=== PATIENT | male | born 1945 | race Hispanic/Latino ===

== ENCOUNTER 2017-10-26 14:34 | Inpatient (IN) | payer OTHER ==
[2017-10-26 16:01] LABS: #Eosinphils 0.5 thou/uL (0.0-0.7); #Lymphocytes 1.8 thou/uL (1.20-3.40); #Monocytes 0.9 thou/uL (0.11-0.59); #Neutrophils 5.7 thou/uL (1.40-6.50); %Basophils 0.4 % (0.0-1.0); %Eosinophils 5.2 % (0.0-10.0); %Lymphocytes 20.2 % (21.0-51.0); %Monocytes 9.6 % (0.0-10.0); %Neutrophils 64.6 % (42.0-75.0); Hemoglobin 10.6 g/dL (14.0-18.0); Mean Corpuscular HGB CONC 33.4 g/dL (32.0-36.0); Mean Corpuscular Hemoglobin 29.6 pg (27.0-31.0); Mean Corpuscular Volume 88.6 fl (80.0-94.0); Mean Platelet Volume 7.3 fL (7.4-10.4); Platelet Count 324 thou/uL (130-400); RBC Distribution Width 13.1 % (11.5-14.5); Red Blood Cell (RBC) Count 3.56 mill/uL (4.70-6.10); White Blood Cell (WBC) Count 8.9 thou/uL (4.8-10.8)
--- NOTE | 2017-10-26 16:17 | RAD ---
RADIOGRAPH CHEST 2 VIEWS: Date: 10/26/17 Time: 3:14 p.m. HISTORY: 72-year-old male with dyspnea and chest pain. COMPARISON: None. FINDINGS: There is mild blunting of the bilateral posterior and lateral costophrenic angles. There is borderlin e cardiomegaly. There is mild pulmonary vascular prominence. No jaguar pulmonary edema. No consolidati on or pneumothorax. IMPRESSION: 1. Evidence for small bilateral pleural effusions (versus pleural thickening). 2. No evidence of pneumonia. JN [] POS: JUAN
[2017-10-26 16:23] LABS: ALT (SGPT) 14 U/L (8-55); AST (SGOT) 22 U/L (5-34); Albumin 3.5 g/dL (3.4-4.8); Alkaline Phosphatase 176 U/L (40-150); Anion Gap 16 mmol/L (10-20); BUN (Urea Nitrogen) 38 mg/dL (8.4-25.7); Bilirubin, Total 0.3 mg/dL (0.2-1.2); CK (CPK) 542 U/L (30-200); Calc. Creatinine Clearance 0 mL/min (70-130); Calcium 6.3 mg/dL (7.8-10.44); Carbon Dioxide 20 mmol/L (23-31); Chloride 110 mmol/L (98-107); Estimated GFR-MDRD 21; Globulin 4.8 g/dL (2.4-3.5); Glucose 94 mg/dL (83-110); Potassium 4.3 mmol/L (3.5-5.1); Protein, Total 8.3 g/dL (5.8-8.1); Sodium 142 mmol/L (136-145)
[2017-10-26 16:27] LABS: CKMB 5.5 ng/mL (0-6.6)
[2017-10-26 17:00] LABS: INR-International Normal Ratio 1.1; PTT 34.5 SEC (22.9-36.1); Prothrombin Time 14.5 SEC (12.0-14.7)
[2017-10-26 17:02] LABS: D-Dimer Test 3.41 *mcg/mL (0.27-0.43)
[2017-10-26] MEDS ORDERED: Furosemide 40 MG/4 ML VIAL ONE (17:07)
[2017-10-26] MEDS ORDERED: Enoxaparin Sodium 80 MG/0.8 ML SYRINGE ONE (17:07)
[2017-10-26 21:57] VITALS: BMI 27.3
[2017-10-26] MEDS ORDERED: Nitroglycerin 0.4 MG TAB (25 Tab Bottle) SL PRN (22:31)
[2017-10-26] MEDS ORDERED: Ondansetron ODT 4 MG TAB PO PRN (22:31)
[2017-10-26] MEDS ORDERED: Ondansetron HCl/PF 4 MG/2 ML Vial IVP PRN (22:31)
[2017-10-26] MEDS ORDERED: hydrALAZINE 20 MG/ML VIAL SLOW IVP PRN (22:31)
[2017-10-26] MEDS ORDERED: cloNIDine 0.1 MG TAB PO PRN (22:31)
[2017-10-26] MEDS ORDERED: Dextrose 50% Abboject 50 ML SYRINGE SLOW IVP PRN (22:31)
[2017-10-26] MEDS ORDERED: Dextrose 5% in Water 1,000 ML IV PRN (22:31)
[2017-10-26] MEDS ORDERED: Acetaminophen 500 MG TAB PO PRN (22:31)
[2017-10-26] MEDS ORDERED: HumaLOG 300 UNITS/3 ML VIAL SC PRN ×2 (22:31)
[2017-10-26] MEDS ORDERED: Furosemide 40 MG/4 ML VIAL SLOW IVP SCH (23:00)
[2017-10-26] MEDS: Calcitriol 0.25 MCG CAP PO SCH (23:32)
[2017-10-27] MEDS: Diabetic Tussin 200 MG/10 ML UDCUP PO PRN ×3 (00:04→23:44)
[2017-10-27 01:05] LABS: Troponin I 2.697 ng/mL (< 0.028)
--- NOTE | 2017-10-27 02:01 | HP ---
DATE OF ADMISSION: 10/26/2017 PRIMARY CARE PROVIDER: [place] [facility]. HISTORY OF PRESENT ILLNESS: This is a 72-year-old male who presents to [facility] complaining of increased cough, shortness of breath over 1 week time period. The patie nt states the symptoms began somewhat insidiously worse when lying flat, at which point, the patient thought he had cold symptoms. The patient admitted in the emergency room with some associated nausea and chest pain, but none currently. The patient also has noticed increasing swelling of his lower e xtremities, which he has not noticed previously. The patient denies any specific change to his chron ic medication regimen, but does state a significant history of chronic kidney disease as well as diab etes mellitus type 2, insulin requiring with diabetic neuropathy. The patient denies any known coron kylie artery disease and denies any previous left heart catheterizations or cardiac interventions. The patient denies any associated left arm, jaw or back pain. The patient does states that he takes chr onic aspirin and Plavix therapy as well as Lasix. In the emergency room, the patient underwent gener al evaluation including chest imaging showing bilateral pleural effusions without evidence for an acu te infiltrate. EKG showed no acute ST-T wave changes; however, the patient was noted with elevated t roponin I of 1.46 and a BNP of 765. The patient received Lasix 40 mg IV push x1 dose in addition to Lovenox 1 mg/kg subcutaneously x1 dose, aspirin 324 mg and sodium chloride 500 mL. The patient was r eferred to the Hospitalist Service for admission. PAST MEDICAL HISTORY: 1. Chronic kidney disease, stage 4. 2. Diabetes mellitus, type 2, insulin requiring with diabetic neuropathy. 3. Hypertension. 4. Chronic normocytic anemia secondary to chronic kidney disease. 5. Hypothyroidism. 6. Peripheral vascular disease. 7. Degenerative joint disease. 8. Hyperlipidemia. PAST SURGICAL HISTORY: Reviewed and negative. CURRENT MEDICATIONS: 1. Amlodipine 10 mg 1 tab p.o. daily. 2. Amoxicillin 250 mg p.o. b.i.d. 3. Enteric-coated aspirin 81 mg p.o. daily. 4. Lipitor 40 mg p.o. daily. 5. Calcitriol 0.25 mcg p.o. q.48 hours. 6. Calcium carbonate 500 mg p.o. b.i.d. 7. Plavix 75 mg 1 tab p.o. daily. 8. Ferrous sulfate 325 mg p.o. b.i.d. 9. Lasix 40 mg p.o. b.i.d. 10. Gemfibrozil 600 mg p.o. b.i.d. 11. Novolin N 22 units subcutaneously q.a.m. and 11 units subcutaneously at bedtime. 12. Novolin R sliding scale with meals. 13. Methylcellulose 500 mg p.o. b.i.d. 14. Metoprolol tartrate 100 mg p.o. b.i.d. 15. Omeprazole 20 mg p.o. daily. 16. Renvela 800 mg p.o. t.i.d. ALLERGIES: No known drug allergies. FAMILY HISTORY: Positive for hypertension and diabetes in multiple family members. SOCIAL HISTORY: Currently an inmate at the [place] [facility] Former tobacco use, smo marleen cigars. No alcohol or illicit drug use. REVIEW OF SYSTEMS: The following complete review of systems was negative, unless otherwise mentioned in the HPI or below: Constitutional: Weight loss or gain, ability to conduct usual activities. Sk in: Rash, itching. Eyes: Double vision, pain. ENT/Mouth: Nose bleeding, neck stiffness, pain, ten derness. Cardiovascular: Palpitations, dyspnea on exertion, orthopnea. Respiratory: Shortness of breath, wheezing, cough, hemoptysis, fever or night sweats. Gastrointestinal: Poor appetite, abdomi nal pain, heartburn, nausea, vomiting, constipation, or diarrhea. Genitourinary: Urgency, frequency , dysuria, nocturia. Musculoskeletal: Pain, swelling. Neurologic/Psychiatric: Anxiety, depression . Allergy/Immunologic: Skin rash, bleeding tendency. Otherwise negative except as stated per HPI. PHYSICAL EXAMINATION: VITAL SIGNS: On admission, blood pressure 156/85, pulse 79, respiratory rate 17, temperature 97.5 de grees Fahrenheit, O2 saturation 99% on room air. GENERAL APPEARANCE: This is a 72-year-old male, alert and oriented x3, pleasant, in no acut e distress. HEENT: Pupils are equal, round, and reactive to light and accommodation. Extraocular muscles are in tact. No scleral icterus, no conjunctival injection. Nares patent. OP is clear. NECK: Supple, no cervical adenopathy, no thyromegaly, no carotid bruits, no JVD appreciated. Cervic al spine with full active and passive range of motion. CHEST: Diminished breath sounds in the bases bilaterally with scattered bibasilar crackles. CARDIOVASCULAR: S1, S2 with distant heart sounds. ABDOMEN: Rounded, soft, nontender, nondistended. Bowel sounds are positive in all four quadrants. There is no hepatosplenomegaly, no abdominal bruits, no rebound or guarding appreciated. EXTREMITIES: Warm and dry with fair turgor. Pitting edema to the proximal shins bilaterally. Pulse s palpable distally at the dorsalis pedis, posterior tibial and popliteal arteries bilaterally. Capi llary refill less than 2 seconds. The patient in ankle and wrist shackles. NEUROLOGIC: Cranial nerves II-XII are grossly intact. No focal or lateralizing signs appreciated. PERTINENT LABORATORY AND X-RAY FINDINGS: Sodium 142, potassium 4.3, chloride 110, CO2 of 20, BUN 38, creatinine 2.97 with estimated GFR of 21, glucose 228, calcium 6.3, alkaline phosphatase 176, total CK of 542, troponin I 1.46. BNP 765, albumin 3.5. CBC showed a white blood cell count of 8.9, hemog lobin 10.6, hematocrit 31.6, platelet count 324 with normal differential. PT 14.5, INR 1.1, PTT 34.5 . D-dimer 3.41. Portable chest x-ray dated 10/26/2017 showed small bilateral pleural effusions. No evidence for an acute pneumonia. EKG dated 10/26/2017 by my interpretation shows a sinus mechanism with heart rates in the 80s. Normal R-wave progression noted in the precordial leads. Normal axis. No acute ST-T wave changes appreciated. ASSESSMENT AND PLAN: 1. Non-ST elevation myocardial infarction. The patient will be admitted to the intermediate care it. We will continue aspirin 325 mg daily with additional Plavix 75 mg p.o. daily. Consult Cardiolo gy Service for evaluation of likely left heart catheterization. Continue Lovenox 1 mg/kg subcutaneou sly q.12 hours. Check fasting lipid profile in the a.m. Resume metoprolol 100 mg p.o. b.i.d. 2. Acute congestive heart failure. We will obtain 2D transthoracic echocardiogram to define specifi c type of heart failure. Continue Lasix 40 mg IV q.12 hours. Monitor daily weight and I's and O's. 3. Chronic kidney disease, stage 4. Avoid nephrotoxic agents and limit contrast media exposure. Re peat creatinine in the a.m. 4. Hypertension. Resume home antihypertensive regimen and monitor clinical response. 5. Diabetes mellitus, type 2, insulin requiring. Resume outpatient insulin regimen with Novolin 22 units subcutaneously q.a.m. and 11 units subcutaneously at bedtime. Accu-Cheks a.c. and at bedtime. Insulin sliding scale for reflexive coverage. 6. Normocytic anemia. Chronic and secondary to chronic kidney disease. Repeat CBC in the a.m. No evidence to suggest acute blood loss. 7. Prophylaxis. Hold sequential compression devices due to lower extremity edema. Pepcid 20 mg p.o . b.i.d. 8. Code status is FULL. Surrogate medical decision maker is [place] [facility].
[2017-10-27 03:27] LABS: Band 1 % (5-11); Eosinophils 7 % (0-10); Hemoglobin 10.2 g/dL (14.0-18.0); Lymphocytes 12 % (21-51); MDiff Complete? YES; Mean Corpuscular HGB CONC 33.7 g/dL (32.0-36.0); Mean Corpuscular Hemoglobin 29.1 pg (27.0-31.0); Mean Corpuscular Volume 86.2 fl (80.0-94.0); Mean Platelet Volume 6.1 fL (7.4-10.4); Monocytes 12 % (0-10); Neutrophil 68 % (42-75); Platelet Count 276 thou/uL (130-400); White Blood Cell (WBC) Count 7.8 thou/uL (4.8-10.8)
[2017-10-27 03:37] LABS: ALT (SGPT) 13 U/L (8-55); AST (SGOT) 18 U/L (5-34); Albumin 3.3 g/dL (3.4-4.8); Alkaline Phosphatase 147 U/L (40-150); Anion Gap 12 mmol/L (10-20); BUN (Urea Nitrogen) 37 mg/dL (8.4-25.7); Bilirubin, Total 0.5 mg/dL (0.2-1.2); CK (CPK) 466 U/L (30-200); Calc. Creatinine Clearance 25 mL/min (70-130); Calcium 6.2 mg/dL (7.8-10.44); Carbon Dioxide 26 mmol/L (23-31); Cardiac Risk 3.9 (Less than 4.5); Chloride 107 mmol/L (98-107); Cholesterol 139 mg/dl (< 200 Desired); Estimated GFR-MDRD 21; Globulin 4.3 g/dL (2.4-3.5); Glucose 109 mg/dL (83-110); HDL Cholesterol 36 mg/dL (>60 Neg Risk); LDL Cholesterol, Calculated 85 mg/dL; Potassium 3.9 mmol/L (3.5-5.1); Protein, Total 7.6 g/dL (5.8-8.1); Sodium 141 mmol/L (136-145); Triglycerides 90 mg/dL (Less than 150)
[2017-10-27 03:38] LABS: Troponin I 3.133 ng/mL (< 0.028)
[2017-10-27] MEDS: Furosemide 40 MG/4 ML VIAL SLOW IVP SCH ×2 (05:35→14:00)
[2017-10-27] MEDS: Metoprolol Tartrate 100 MG TAB PO SCH ×2 (08:10→21:18)
[2017-10-27] MEDS: Clopidogrel Bisulfate 75 MG TAB PO SCH (08:10)
[2017-10-27] MEDS: Calcium Carbonate 500 MG TAB PO SCH ×2 (08:10→21:18)
[2017-10-27] MEDS: Ferrous Sulfate 325 MG TAB PO SCH ×2 (08:10→16:10)
[2017-10-27] MEDS: Sevelamer Carbonate 800 MG TAB PO SCH ×3 (08:10→16:10)
[2017-10-27] MEDS: Gemfibrozil 600 MG TAB PO SCH ×2 (08:10→16:09)
[2017-10-27] MEDS: NPH, Human Insulin Isophane 300 UNIT/3 ML VIAL SC SCH ×2 (08:11→21:18)
[2017-10-27] MEDS: Amlodipine 10 MG TAB PO SCH (08:11)
[2017-10-27] MEDS ORDERED: Prevnar 13-Val Conj/PF 0.5 ML SYRINGE IM ONE (09:00)
[2017-10-27] MEDS ORDERED: Aspirin 325 MG TAB PO SCH (09:00)
[2017-10-27] MEDS ORDERED: Aspirin 81 mg Enteric Coated Tablet PO SCH (09:45)
[2017-10-27] MEDS: Famotidine 20 MG TAB PO SCH (10:09)
--- NOTE | 2017-10-27 14:31 | CON ---
DATE OF CONSULTATION: 10/27/2017 HISTORY OF PRESENT ILLNESS: The patient is an unfortunate 72-year-old gentleman who presented with coughing, dyspnea, was noted to have an elevated troponin level. The patient has no previous cardiac history. The patient has a history of diabetes mellitus and hypertension. The patient was noticed recently having increasing coughing and he started vomiting. He brought to the emergency room. Patient denies having any history of chest discomfort. He does report he recently noted having increasing dyspnea on exertion. PAST MEDICAL HISTORY: 1. Hypertension. 2. Diabetes mellitus. 3. Chronic renal insufficiency. PAST SURGICAL HISTORY: None. SOCIAL HISTORY: Nonsmoker. MEDICATIONS ON ADMISSION: Lopressor 100 mg p.o. b.i.d., Norvasc 10 daily, sevelamer 800 t.i.d., gemfibrozil 600 daily, Lasix 40 daily, Plavix 75 daily, Lipitor 40 at bedtime, aspirin 81 daily, amoxicillin 250 b.i.d. and insulin. FAMILY HISTORY: Positive family history of heart disease. ALLERGIES: No known drug allergies. REVIEW OF SYSTEMS: Ten-point system otherwise unremarkable, no history of easy bruising or bleeding, bright red blood per rectum. PHYSICAL EXAMINATION: GENERAL: Well-developed gentleman in no acute distress. VITAL SIGNS: Blood pressure 150/66. NECK: No jugular venous distention. LUNGS: Clear to auscultation. HEART: Regular rate and rhythm with a normal S1, S2, no murmurs. ABDOMEN: Distended. EXTREMITIES: Showed mild bilateral edema. VASCULAR: Radial pulses are 2+. LABORATORY RESULTS: Sodium 141, potassium 3.9, chloride 107, bicarbonate 26, BUN 37, creatinine is 2.98, glucose is 118, troponin is 3.1. His CPK was 466. IMPRESSION: 1. Dyspnea with evidence of congestive heart failure. 2. Elevated troponin level, possible silent non-Q-wave myocardial infarction. 3. Hypertension. 4. Diabetes mellitus. 5. Chronic renal insufficiency. The patient presents with a possible non-Q-wave myocardial infarction. We will check the patient's echocardiogram. With his significant renal insufficiency, we will proceed with stress testing to see if there is evidence of ischemia before considering an invasive evaluation. The patient is on otherwise appropriate medications. We will follow this patient with you through his hospitalization. MANJULA
[2017-10-27] MEDS: Enoxaparin Sodium 30 MG/0.3 ML SYRINGE SC SCH (16:10)
--- NOTE | 2017-10-27 16:22 | CON ---
DATE OF CONSULTATION: 10/27/2017 SERVICE: Pulmonary Medicine. REASON FOR CONSULTATION: IMCU patient. HISTORY OF PRESENT ILLNESS: The patient is a 72-year-old male with past medical history significant for chronic kidney disease stage 4 and diabetes. He is in his usual state of health when he had onset of cough. He is bringing up a little bit of white phlegm. He had increasing shortness of breath. This was worse whenever he lied down. He presented to the Emergency Department and was discovered to be in acute heart failure. His BNP was elevated. He got couple doses of Lasix. Overnight, he diuresed very nicely. This morning, his cough and shortness of breath have resolved. He denies any current fevers, chills, nausea or vomiting. There is no infectious prodrome. PAST MEDICAL HISTORY: 1. Type 2 diabetes mellitus. 2. Hypertension. 3. Dyslipidemia. 4. Hypothyroidism. 5. Chronic kidney disease stage 4. 6. Anemia secondary to chronic kidney disease. 7. Peripheral vascular disease. 8. Degenerative joint disease. PAST SURGICAL HISTORY: Negative. ALLERGIES: No known drug allergies. MEDICATIONS: List of his inpatient medications were reviewed, but no specific updates were made at this time. ALLERGIES: No known drug allergies. FAMILY HISTORY: Noncontributory. SOCIAL HISTORY: He is currently in custody at the [place] [facility]. At that location, he has exposure to tuberculosis. He does not use alcohol or cigarettes. He denies any exposures to chemicals, dust or asbestos. REVIEW OF SYSTEMS: General, head, ears, eyes, nose, throat, cardiovascular, respiratory, GI, , musculoskeletal, neurologic and skin is negative except as stated in HPI. PHYSICAL EXAMINATION: VITAL SIGNS: Afebrile, pulse 54, blood pressure 138/58, respirations 13, saturation 100% on room air. GENERAL: The patient awake, alert, no apparent distress. LUNGS: Decent air entry. There is no prolonged expiratory phase, wheezing or rhonchi. Dependent crackles are present. HEART: Normal rate, regular. ABDOMEN: Soft, nontender, and nondistended. Bowel sounds are positive. MUSCULOSKELETAL: No cyanosis or clubbing. There is 1-2+ pitting in the bilateral lower extremities. NEUROLOGIC: Grossly nonfocal. LABORATORY DATA: WBC 7.8, hemoglobin 10.2 and stable, platelets 276,000. INR 1.1. Creatinine 2.98 and roughly stable. Basic metabolic profile is otherwise unremarkable. BUN is 37. Liver function studies are negative. Troponin is going up to 3.1. ASSESSMENT: 1. Acute hypoxic respiratory failure, resolved. 2. Acute on chronic diastolic heart failure. 3. Non-ST elevation myocardial infarction. 4. Type 2 diabetes mellitus. PLAN: The patient has been diuresed to euvolemia. At this point, he is stable for transition out of the [facility] regular to the telemetry floor. Echocardiogram is currently pending. Pulmonary or Critical Care will continue to follow if the patient remains in this location. 70 minutes have been devoted to this patient in various activities. I personally reviewed all imaging studies and laboratory data noted within this document. For fifty percent of this time, I was interacting with the patient at the bedside or coordinating care with the care team. For the remainder of the time I was immediately available to the patient in the hospital unit. MANJULA
[2017-10-27] MEDS ORDERED: Enoxaparin Sodium 80 MG/0.8 ML SYRINGE SC SCH (17:00)
[2017-10-27] MEDS ORDERED: Atorvastatin Calcium 40 MG TAB PO SCH (21:00)
--- NOTE | 2017-10-27 22:17 | PDOC.PN ---
- Subjective Encounter Start Date: 10/27/17 Encounter Start Time: 15:00 Subjective: nsg notes rev, regan ovn, 2 guards at bedside, no c/o denies CP -: denies SOB - Objective Resuscitation Status: Resuscitation Status FULL:Full Resuscitation Vital Signs & Weight: Vital Signs (12 hours) Temp Pulse Resp BP Pulse Ox 10/27/17 20:00 98.7 F 57 L 20 126/51 L 98 10/27/17 15:07 98.4 F 54 L 138/58 L 93 L 10/27/17 11:30 98.4 F 52 L 23 H 133/59 L 100 Weight Weight 168 lb 4.8 oz I&O: 10/26/17 10/27/17 10/28/17 06:59 06:59 06:59 Intake Total 75 720 Output Total 1575 2600 Balance -1500 -1880 Result Diagrams: 10/28/17 05:07 10/29/17 03:49 Additional Labs: Accuchecks 10/27/17 10/27/17 10/27/17 20:20 16:31 10:28 POC Glucose 118 H 104 66 L 10/27/17 05:39 POC Glucose 118 H Phys Exam - Physical Examination Constitutional: NAD lying in hospital bed x4 handcuffs HEENT: moist MMs, sclera anicteric Respiratory: no wheezing, no rales, no rhonchi, clear to auscultation bilateral Cardiovascular: RRR, no significant murmur, no rub Gastrointestinal: soft, non-tender, positive bowel sounds Musculoskeletal: no edema, pulses present Psychiatric: normal affect, A&O x 3 Dx/Plan - Plan * 72M hx HTN DM who p/w SOB * * NSTEMI * apprec card c/s * plan for stress test today * serial troponin * med mgmt * VSS and hemodyn stable HTN, stable DM2 stable hx CKD stable diet: cardiac diabetic renal activity: bedrest dvt ppx Review of Systems - Medications/Allergies Allergies/Adverse Reactions: Allergies Allergy/AdvReac Type Severity Reaction Status Date / Time No Known Allergies Allergy Unverified 10/26/17 19:54 Medications: Current Medications Acetaminophen (Tylenol) 1,000 mg PO Q6H PRN PRN Reason: Headache/Fever or Mild Pain Amlodipine Besylate (Norvasc) 10 mg PO DAILY ARMANI Last Admin: 10/27/17 08:11 Dose: 10 mg Aspirin (Ecotrin) 81 mg PO DAILY [facility] Atorvastatin Calcium (Lipitor) 40 mg PO QPM [facility] Last Admin: 10/27/17 21:18 Dose: 40 mg Calcitriol (Rocaltrol) 0.25 mcg PO Q2DAYS [facility] Last Admin: 10/26/17 23:32 Dose: 0.25 mcg Calcium Carbonate (Oscal-500) 500 mg PO BID [facility] Last Admin: 10/27/17 21:18 Dose: 500 mg Clonidine (Catapres) 0.1 mg PO Q4H PRN PRN Reason: Systolic BP > 180 Clopidogrel Bisulfate (Plavix) 75 mg PO DAILY [facility] Last Admin: 10/27/17 08:10 Dose: 75 mg Dextrose/Water (Dextrose 50%) 25 gm SLOW IVP PRN PRN PRN Reason: Hypoglycemia Enoxaparin Sodium (Lovenox) 30 mg SC 1700 [facility] Last Admin: 10/27/17 16:10 Dose: 30 mg Famotidine (Pepcid) 20 mg PO Q24HR [facility] Last Admin: 10/27/17 10:09 Dose: 20 mg Ferrous Sulfate (Feosol) 325 mg PO BID-[facility] Last Admin: 10/27/17 16:10 Dose: 325 mg Furosemide (Lasix) 40 mg SLOW IVP 0600,1400 [facility] Last Admin: 10/27/17 14:00 Dose: 40 mg Gemfibrozil (Lopid) 600 mg PO BID-AC [facility] Last Admin: 10/27/17 16:09 Dose: 600 mg Glucagon (Glucagon) 1 mg IM PRN PRN PRN Reason: Hypoglycemia Guaifenesin (Robitussin Sf) 300 mg PO Q4H PRN PRN Reason: Cough Last Admin: 10/27/17 05:35 Dose: 300 mg Hydralazine HCl (Apresoline) 10 mg SLOW IVP Q4H PRN PRN Reason: Systolic BP > 180 Dextrose/Water (D5w) 1,000 mls @ 0 mls/hr IV .Q0M PRN; As Directed PRN Reason: Hypoglycemia Insulin Human Lispro (Humalog) 0 units SC .MODERATE SLIDING SC PRN PRN Reason: Moderate Correctional Scale Insulin Human Lispro (Humalog) 0 units SC .BEDTIME SLIDING SC PRN PRN Reason: Bedtime Correctional Scale Insulin Human NPH (Humulin N) 11 unit SC QPM [facility] Last Admin: 10/27/17 21:18 Dose: 11 unit Insulin Human NPH (Humulin N) 22 unit SC DAILY-[facility] Last Admin: 10/27/17 08:11 Dose: 22 unit Metoprolol Tartrate (Lopressor) 100 mg PO BID [facility] Last Admin: 10/27/17 21:18 Dose: 100 mg Nitroglycerin (Nitrostat) 0.4 mg SL Q5MIN PRN PRN Reason: Chest Pain Ondansetron HCl (Zofran Odt) 4 mg PO Q6H PRN PRN Reason: Nausea/Vomiting Ondansetron HCl (Zofran) 4 mg IVP Q6H PRN PRN Reason: Nausea/Vomiting Sevelamer Carbonate (Renvela) 800 mg PO TID-[facility] Last Admin: 10/27/17 16:10 Dose: 800 mg
[2017-10-28 05:31] LABS: #Basophils 0.1 thou/uL (0.0-0.2); #Eosinphils 0.3 thou/uL (0.0-0.7); #Lymphocytes 1.6 thou/uL (1.20-3.40); #Monocytes 0.7 thou/uL (0.11-0.59); #Neutrophils 6.6 thou/uL (1.40-6.50); %Basophils 0.6 % (0.0-1.0); %Eosinophils 3.5 % (0.0-10.0); %Lymphocytes 17.6 % (21.0-51.0); %Monocytes 7.9 % (0.0-10.0); %Neutrophils 70.4 % (42.0-75.0); Hemoglobin 10.5 g/dL (14.0-18.0); Mean Corpuscular HGB CONC 33.7 g/dL (32.0-36.0); Mean Corpuscular Hemoglobin 29.6 pg (27.0-31.0); Mean Corpuscular Volume 87.9 fl (80.0-94.0); Mean Platelet Volume 6.6 fL (7.4-10.4); Platelet Count 324 thou/uL (130-400); RBC Distribution Width 12.8 % (11.5-14.5); Red Blood Cell (RBC) Count 3.54 mill/uL (4.70-6.10); White Blood Cell (WBC) Count 9.3 thou/uL (4.8-10.8)
[2017-10-28] MEDS: Diabetic Tussin 200 MG/10 ML UDCUP PO PRN (05:45)
[2017-10-28] MEDS: Furosemide 40 MG/4 ML VIAL SLOW IVP SCH ×2 (05:45→14:03)
[2017-10-28 05:52] LABS: Anion Gap 14 mmol/L (10-20); BUN (Urea Nitrogen) 41 mg/dL (8.4-25.7); Calc. Creatinine Clearance 21 mL/min (70-130); Calcium 6.5 mg/dL (7.8-10.44); Carbon Dioxide 26 mmol/L (23-31); Chloride 101 mmol/L (98-107); Estimated GFR-MDRD 18; Glucose 81 mg/dL (83-110); Potassium 3.7 mmol/L (3.5-5.1); Sodium 137 mmol/L (136-145)
[2017-10-28] MEDS ORDERED: Regadenoson 0.4 MG/5 ML SYRINGE ONE (10:33)
[2017-10-28] MEDS: Gemfibrozil 600 MG TAB PO SCH ×2 (13:26→16:49)
[2017-10-28] MEDS: Ferrous Sulfate 325 MG TAB PO SCH ×2 (13:27→16:49)
[2017-10-28] MEDS: Sevelamer Carbonate 800 MG TAB PO SCH ×3 (13:27→16:49)
[2017-10-28] MEDS: NPH, Human Insulin Isophane 300 UNIT/3 ML VIAL SC SCH ×2 (13:27→21:21)
[2017-10-28] MEDS: Aspirin 81 mg Enteric Coated Tablet PO SCH (13:28)
[2017-10-28] MEDS: Amlodipine 10 MG TAB PO SCH (13:28)
[2017-10-28] MEDS: Clopidogrel Bisulfate 75 MG TAB PO SCH (13:29)
[2017-10-28] MEDS: Calcium Carbonate 500 MG TAB PO SCH ×2 (13:29→21:08)
[2017-10-28] MEDS: Famotidine 20 MG TAB PO SCH (13:29)
[2017-10-28] MEDS: Metoprolol Tartrate 100 MG TAB PO SCH ×2 (13:29→21:08)
--- NOTE | 2017-10-28 13:35 | NM ---
NUCLEAR MEDICINE CARDIAC MYOCARDIAL PERFUSION SPECT EJECTION FRACTION STUDY WALL MOTION CINE: DATE: 10/28/17. HISTORY: A 72-year-old male with a history of congestive heart failure, peripheral vascular disease, hypertens ion, diabetes mellitus, and dyslipidemia, presents with elevated troponin. TECHNIQUE: Number of days: one. Rest study: Tc99m sestamibi (Cardiolite) dose: 11.0 mCi. Pharmacologic stress: Lexiscan dose: 0.4 mg. Stress study: Tc99m sestamibi (Cardiolite) dose: 30.0 mCi. FINDINGS: CARDIAC (MYOCARDIAL PERFUSION) SPECT There is a fixed perfusion defect at the apex. No reversible perfusion defect is identified. EJECTION FRACTION STUDY EF = 49% WALL MOTION CINE The septum is hypokinetic. IMPRESSION: 1. No evidence of reversible ischemia. 2. Evidence for infarction/scar at the cardiac apex. 3. Septal hypokinesis. SHELIA Ramos POS: JUAN
--- NOTE | 2017-10-28 16:12 | PRG ---
DATE OF SERVICE: 10/28/2017 SERVICE: Pulmonary Medicine. INTERVAL HISTORY: The patient is doing outstanding from a respiratory standpoint. He denies any cur rent chest pain, fever, chills, palpitations, nausea, vomiting or diarrhea. Otherwise, there has bee n no interval change to his condition. PHYSICAL EXAMINATION: VITAL SIGNS: Afebrile, pulse 62, blood pressure 119/58, respirations 97, saturation 97% on room air. GENERAL: Patient is awake, alert, no apparent distress. LUNGS: Decent air entry with no prolonged expiratory phase. There is no wheezing, rhonchi, or crack les present. HEART: Normal rate and regular. ABDOMEN: Soft, nontender, nondistended. Bowel sounds are positive. MUSCULOSKELETAL: No cyanosis or clubbing. There is trace pitting in the bilateral lower extremities . NEUROLOGIC: Grossly nonfocal. LABORATORY DATA: WBC 9.3, hemoglobin 10.5, platelets 324,000. INR 1.1. Creatinine 3.37 and gently up trending. BUN 41. Basic metabolic profile is otherwise unremarkable. Calcium 6.5. IMAGING DATA: Nuclear stress test demonstrates no evidence of reversible ischemia. There is evidenc e for infection/scar at the apex. Septal hypokinesis is evident. ASSESSMENT: 1. Acute hypoxic respiratory failure, resolved. 2. Acute on chronic diastolic heart failure, improved to baseline. 3. Non-ST elevation myocardial infarction. 4. Type 2 diabetes mellitus. DISCUSSION AND PLAN: The patient is stable for transition out of the IMCU to the telemetry floor. P ulmonary or Critical Care will sign off when he goes to the floor. Please call with additional quest ions or concerns moving forward.
[2017-10-28] MEDS: Enoxaparin Sodium 30 MG/0.3 ML SYRINGE SC SCH (16:49)
[2017-10-28] MEDS ORDERED: Atorvastatin Calcium 20 MG TAB PO SCH (21:00)
[2017-10-28] MEDS: Calcitriol 0.25 MCG CAP PO SCH (22:00)
--- NOTE | 2017-10-28 23:58 | PDOC.PN ---
- Subjective Encounter Start Date: 10/28/17 Encounter Start Time: 16:00 Subjective: nsg notes rev, regan ovn, no new c/o, guards @ bedside - Objective Resuscitation Status: Resuscitation Status FULL:Full Resuscitation Vital Signs & Weight: Vital Signs (12 hours) Temp Pulse Resp BP Pulse Ox 10/28/17 20:00 99.1 F 71 18 138/66 95 10/28/17 15:17 98.3 F 62 23 H 119/58 L 97 10/28/17 13:28 60 10/28/17 13:09 98.2 F 60 18 130/71 97 Weight Weight 163 lb 14.4 oz I&O: 10/27/17 10/28/17 10/29/17 06:59 06:59 06:59 Intake Total 75 1095 1200 Output Total 1575 3175 2101 Balance -1500 -2080 -901 Result Diagrams: 10/28/17 05:07 10/29/17 03:49 Additional Labs: Accuchecks 10/28/17 10/28/17 10/28/17 21:14 16:46 13:08 POC Glucose 203 H 128 H 104 10/28/17 05:45 POC Glucose 93 Phys Exam - Physical Examination Constitutional: NAD HEENT: PERRLA Respiratory: no wheezing, no rales Cardiovascular: RRR, no significant murmur, no rub Gastrointestinal: soft, no distention, positive bowel sounds Musculoskeletal: no edema, pulses present Psychiatric: normal affect, A&O x 3 Dx/Plan - Plan * 72M hx HTN DM who p/w SOB * * NSTEMI * apprec card c/s * serial troponin * med mgmt * VSS and hemodyn stable HTN, stable DM2 stable hx CKD stable diet: cardiac diabetic renal activity: bedrest dvt ppx Review of Systems - Medications/Allergies Allergies/Adverse Reactions: Allergies Allergy/AdvReac Type Severity Reaction Status Date / Time No Known Allergies Allergy Unverified 10/26/17 19:54 Medications: Current Medications Acetaminophen (Tylenol) 1,000 mg PO Q6H PRN PRN Reason: Headache/Fever or Mild Pain Amlodipine Besylate (Norvasc) 10 mg PO DAILY [facility] Last Admin: 10/29/17 07:23 Dose: 10 mg Aspirin (Ecotrin) 81 mg PO DAILY [facility] Last Admin: 10/29/17 07:24 Dose: 81 mg Atorvastatin Calcium (Lipitor) 40 mg PO QPM [facility] Last Admin: 10/28/17 21:10 Dose: 40 mg Calcitriol (Rocaltrol) 0.25 mcg PO Q2DAYS [facility] Last Admin: 10/28/17 22:00 Dose: 0.25 mcg Calcium Carbonate (Oscal-500) 500 mg PO BID [facility] Last Admin: 10/29/17 07:23 Dose: 500 mg Clonidine (Catapres) 0.1 mg PO Q4H PRN PRN Reason: Systolic BP > 180 Clopidogrel Bisulfate (Plavix) 75 mg PO DAILY [facility] Last Admin: 10/29/17 07:23 Dose: 75 mg Dextrose/Water (Dextrose 50%) 25 gm SLOW IVP PRN PRN PRN Reason: Hypoglycemia Enoxaparin Sodium (Lovenox) 30 mg SC 1700 [facility] Last Admin: 10/28/17 16:49 Dose: 30 mg Famotidine (Pepcid) 20 mg PO Q24HR [facility] Last Admin: 10/29/17 07:24 Dose: 20 mg Ferrous Sulfate (Feosol) 325 mg PO BID[facility] Last Admin: 10/29/17 07:23 Dose: 325 mg Furosemide (Lasix) 40 mg PO DAILY-[facility] Last Admin: 10/29/17 07:23 Dose: 40 mg Gemfibrozil (Lopid) 600 mg PO BID-[facility] Last Admin: 10/29/17 07:23 Dose: 600 mg Glucagon (Glucagon) 1 mg IM PRN PRN PRN Reason: Hypoglycemia Guaifenesin (Robitussin Sf) 300 mg PO Q4H PRN PRN Reason: Cough Last Admin: 10/28/17 05:45 Dose: 300 mg Hydralazine HCl (Apresoline) 10 mg SLOW IVP Q4H PRN PRN Reason: Systolic BP > 180 Dextrose/Water (D5w) 1,000 mls @ 0 mls/hr IV .Q0M PRN; As Directed PRN Reason: Hypoglycemia Insulin Human Lispro (Humalog) 0 units SC .MODERATE SLIDING SC PRN PRN Reason: Moderate Correctional Scale Insulin Human Lispro (Humalog) 0 units SC .BEDTIME SLIDING SC PRN PRN Reason: Bedtime Correctional Scale Insulin Human NPH (Humulin N) 11 unit SC QPM [facility] Last Admin: 10/28/17 21:21 Dose: 11 unit Insulin Human NPH (Humulin N) 22 unit SC DAILY-[facility] Last Admin: 10/29/17 07:34 Dose: Not Given Isosorbide Mononitrate (Imdur Er) 30 mg PO DAILY [facility] Last Admin: 10/29/17 07:23 Dose: 30 mg Metoprolol Tartrate (Lopressor) 100 mg PO BID [facility] Last Admin: 10/29/17 07:43 Dose: Not Given Nitroglycerin (Nitrostat) 0.4 mg SL Q5MIN PRN PRN Reason: Chest Pain Ondansetron HCl (Zofran Odt) 4 mg PO Q6H PRN PRN Reason: Nausea/Vomiting Ondansetron HCl (Zofran) 4 mg IVP Q6H PRN PRN Reason: Nausea/Vomiting Sevelamer Carbonate (Renvela) 800 mg PO TID[facility] Last Admin: 10/29/17 07:23 Dose: 800 mg
[2017-10-29] MEDS ORDERED: Furosemide 40 MG/4 ML VIAL SLOW IVP SCH (06:00)
[2017-10-29 06:18] LABS: Anion Gap 16 mmol/L (10-20); BUN (Urea Nitrogen) 49 mg/dL (8.4-25.7); Calc. Creatinine Clearance 18 mL/min (70-130); Calcium 6.5 mg/dL (7.8-10.44); Carbon Dioxide 26 mmol/L (23-31); Chloride 99 mmol/L (98-107); Estimated GFR-MDRD 15; Glucose 80 mg/dL (83-110); Potassium 3.8 mmol/L (3.5-5.1); Sodium 137 mmol/L (136-145)
[2017-10-29] MEDS: Ferrous Sulfate 325 MG TAB PO SCH (07:23)
[2017-10-29] MEDS: Gemfibrozil 600 MG TAB PO SCH (07:23)
[2017-10-29] MEDS: Sevelamer Carbonate 800 MG TAB PO SCH ×2 (07:23→10:46)
[2017-10-29] MEDS: Amlodipine 10 MG TAB PO SCH (07:23)
[2017-10-29] MEDS: Calcium Carbonate 500 MG TAB PO SCH (07:23)
[2017-10-29] MEDS: Clopidogrel Bisulfate 75 MG TAB PO SCH (07:23)
[2017-10-29] MEDS: Famotidine 20 MG TAB PO SCH (07:24)
[2017-10-29] MEDS: Aspirin 81 mg Enteric Coated Tablet PO SCH (07:24)
[2017-10-29] MEDS ORDERED: Furosemide 40 MG TAB PO SCH (07:30)
[2017-10-29] MEDS: NPH, Human Insulin Isophane 300 UNIT/3 ML VIAL SC SCH ×2 (07:34→08:50)
[2017-10-29] MEDS: Metoprolol Tartrate 100 MG TAB PO SCH (07:43)
[2017-10-29 08:04] VITALS: TEMP 98.7
[2017-10-29] MEDS: Diabetic Tussin 200 MG/10 ML UDCUP PO PRN (08:48)
--- NOTE | 2017-10-29 09:48 | PRG ---
DATE OF SERVICE: 10/29/2017 SERVICE: Pulmonary Medicine INTERVAL HISTORY: He is doing fantastic from a cardiovascular and respiratory perspective. He denie s any chest pain, nausea, vomiting or shortness of breath. Otherwise, he is returning to his usual s alexander of health. His appetite is pretty decent. PHYSICAL EXAMINATION: VITAL SIGNS: Afebrile, pulse 53, blood pressure 136/65, respirations 24, saturation 97% on room air. GENERAL: The patient is awake, alert, in no apparent distress. LUNGS: Decent air entry. There is no prolonged expiratory phase, wheezing, rhonchi or crackles. HEART: Bradycardic. Regular. ABDOMEN: Soft, nontender, nondistended. Bowel sounds are positive. MUSCULOSKELETAL: No cyanosis or clubbing. No pitting in the bilateral lower extremities. NEUROLOGIC: Grossly nonfocal. LABORATORY DATA: WBC 9.3, hemoglobin 10.5, platelets 324,000. Creatinine 3.89 and up trending. BUN 49. Basic metabolic profile is otherwise unremarkable. Calcium 6.5. ASSESSMENT: 1. Acute hypoxic respiratory failure. 2. Acute on chronic diastolic heart failure, at baseline. 3. Non-ST elevation myocardial infarction. 4. Acute kidney injury on chronic kidney disease 4. 5. Type 2 diabetes mellitus. PLAN: The patient remains stable for transition out of the IMCU to the telemetry floor. When he goe s to the floor, Pulmonary will sign off. Please call with additional questions or concerns moving fo rward. He has returned to euvolemia and is on room air. As such, Lasix will be interrupted.
[2017-10-29] MEDS ORDERED: Metoprolol Tartrate 100 MG TAB PO SCH (09:59)
[2017-10-29] MEDS ORDERED: Metoprolol Tartrate 50 MG TAB PO SCH ×2 (10:15→21:00)
[2017-10-29 16:21] VITALS: BP 132/64
--- NOTE | 2017-10-30 13:22 | DIS ---
DISCHARGE DIAGNOSES: 1. Nms-JN-vdibhok elevation myocardial infarction, resolved. 2. Shortness of breath secondary to an twp-QS-hscekew elevation myocardial infarction. BRIEF SUMMARY OF HOSPITAL COURSE: This is a 72-year-old male with a history of hypertension, diabetes, and chronic kidney disease who initially presented with a chief complaint of shortness of breath. Please see the original history and physical for full details surrounding admission. The patient was seen by Cardiology during this hospitalization for NSTEMI and underwent medical management including anticoagulation. He has remained hemodynamically stable with stable vital signs as well. At the time of discharge, the patient is hemodynamically stable. He denies any chest pain, no longer has any shortness of breath as well. The remainder of the patient's chronic medical issues have remained stable during this hospitalization. The patient was placed initially in the Intermediate Step Down Unit and therefore was seen by Pulmonary Critical Care as a reflexive consult based on geographic location. CONSULTATIONS: 1. Cardiology. 2. Critical Care. MEDICATION RECONCILIATION: Please see the EMR for full details. Of note, the patient will continue on his home regimen with the addition of aspirin 81 mg p.o., atorvastatin 40 mg p.o. at bedtime, Lopressor 50 mg p.o. b.i.d. DISCHARGE CONDITION: At the time of discharge, the patient is hemodynamically stable. He has been seen and examined by myself on the day of discharge. DISCHARGE INSTRUCTIONS: The patient is asked to follow up closely with his outpatient team including his user interface engineer and primary care provider. SIGNIFICANT LABS AND IMAGING: On 10/27/2017 echocardiogram, summary "ejection fraction is visually estimated at 45-50%. The left atrium is mildly dilated. Left ventricular size is mildly increased. Impaired relaxation compatible with diastolic dysfunction. Mild aortic regurgitation is noted. Mild mitral regurgitation is present. Mild tricuspid regurgitation." 10/28/2017 - Stress test nuclear medicine. Impression; "No evidence of reversible ischemia. Evidence for infarction/scar at the cardiac apex. Septal hypokinesis." Thank you for asking me to care for the patient. Greater than 30 minutes spent coordinating discharge for the patient. MANJULA
--- NOTE | 2017-11-03 20:23 | EKG ---
Test Reason : Blood Pressure : / mmHG Vent. Rate : 080 BPM Atrial Rate : 080 BPM P-R Int : 134 ms QRS Dur : 082 ms QT Int : 458 ms P-R-T Axes : 040 022 087 degrees QTc Int : 528 ms Normal sinus rhythm Nonspecific ST and T wave abnormality Prolonged QT Abnormal ECG Confirmed by FELICIANO SANCHEZ ([id number]), staff editor ALEXANDER GARCIA ([id number] on 11/03/2017 8:23:22 PM Referred By: Confirmed By:FELICIANO SANCHEZ
--- NOTE | 2017-12-04 13:46 | STRESS ---
Acquisition Time: 2017-10-28 11:34:21 Total Exercise Time: 00:01:00 Test Indications: ELEVATED TROPONINS Medications: Protocol: LEXISCAN Max HR: 071 BPM 47% of Pred: 149 BPM Max BP: 142/078 mmHG Max Work Load: 1.0 METS THE PATIENT WAS INJECTED WITH LEXISCAN. HE DID NOT DEVELOP CHEST PAIN. THERE WAS NO SIGNIFICANT ST DEPRESSION. AWAIT NUCLEAR IMAGES FOR DEFINITIVE DIAGNOSIS. Confirmed by FERN SIMPSON ([id number]), art editor ANAND SMITH ([id number]) on 12/04/2017 1:46:00 PM Referred By: MD Froy SIMPSON Confirmed By:FERN SIMPSON
== END 2017-10-29 17:02 | DRG 280 ==
LOC: ERS 14:34 → IMCU/EMU 17:49
PROVIDERS: ADMIT Internal Medicine; ATTEND Internal Medicine
PROC: C23GYZZ Positron Emission Tomographic (PET) Imaging of Myocardium using Other Radionuclide (ICD-10-PCS; principal; 2017-10-28)
DX: I21.4 Non-ST elevation (NSTEMI) myocardial infarction (principal); J96.01 Acute respiratory failure with hypoxia; I50.33 Acute on chronic diastolic (congestive) heart failure; N18.4 Chronic kidney disease, stage 4 (severe); I13.0 Hypertensive heart and chronic kidney disease with heart failure and stage 1 through stage 4 chronic kidney disease, or unspecified chronic kidney disease; E11.42 Type 2 diabetes mellitus with diabetic polyneuropathy; Z79.4 Long term (current) use of insulin; Z79.01 Long term (current) use of anticoagulants; Z79.82 Long term (current) use of aspirin; E11.22 Type 2 diabetes mellitus with diabetic chronic kidney disease; D63.1 Anemia in chronic kidney disease; E03.9 Hypothyroidism, unspecified; M19.90 Unspecified osteoarthritis, unspecified site; E78.5 Hyperlipidemia, unspecified
CPT/HCPCS: 36415; 36416; 71046; 78452; 80048; 80053; 80061; 82550; 82553; 83880; 84484; 85007; 85025; 85027; 85379; 85610; 85730; 90471; 90670; 93005; 93017; 93306; 93798; 96361; 96372; 96374; A9500; G0009; J1650; J1815; J1940; J2785